=== PATIENT | female | born 1945 | race Caucasian/White ===

== ENCOUNTER 2023-09-27 11:01 | Inpatient (IN) | payer OTHER, SELFPAY ==
[2023-09-27] VITALS (20 sets, daily range): BP systolic 110–167; BP diastolic 52–95; BMI 24.5
[2023-09-27] MEDS: ZOFRAN 4 MG IV (09:45)
--- NOTE | 2023-09-27 09:47 | ED.CVA ---
History of Present Illness
General
Chief Complaint: CVA/TIA Symptoms
Source: spouse and ambulance crew
Exam Limitations: clinical condition
Time Seen by Provider: 09/27/23 09:45
Nursing documentation reviewed up to this point in time: agreed with
Onset of Stroke Symptoms
Onset of symptoms known: Yes
Date of onset of symptoms: 09/24/23
History of Present Illness
History of Present Illness:
77-year-old female with a past medical history of diabetes, CAD status post CABG, hypertension who presents to the emergency department via EMS with aphasia and right flaccid paralysis. Patient cannot provide any history she is completely aphasic.
Per EMS report they received a call that patient was unresponsive found her with flaccid paralysis and nonverbal transported to the emergency room. I called patient's (Cesar) to obtain collateral history: He says that at baseline patient
is awake and alert oriented at performs all ADLs, drives and ambulates without assistance. He reports that over the past 3 days the patient has been having difficulties with her speech�he describes that she has been 'speaking gibberish.' She did
not have any evaluation for the symptoms. Last night she fell asleep on the couch which is not unusual for her and this morning when he found her about an hour prior to arrival here she was unresponsive�he says shortly after he found her she had
some violent shaking of her arms and her head and had some vomiting. EMS called and brought her to the emergency room. He last saw her awake and alert last night at 10:30 PM.
Past History
Past History
ED Past Medical History: HTN, Hypercholesterolemia and NIDDM
ED Past Surgical History: Appendectomy, Cardiac (CABG, STent) and Cholecystectomy
Social History
Tobacco: Former smoker
Alcohol: Occasional
Personal:
Living: with family
Review of Systems
Review of Systems
Unable to obtain full review of systems at this time due to: due to acuity
All Other Systems: Not applicable
Phy Exam
Physical Exam
Physical Exam:
General: Laying in bed eyes open but aphasic and not following commands
Head: Normocephalic, atraumatic
Eyes: Conjunctiva normal, pupils are 3 mm and symmetric, reactive to light bilaterally, no gaze preference noted, response to threat in both eyes
Throat: Airway intact, moist mucous membranes
Neck: Trachea midline, supple without meningismus
Lungs: Clear to auscultation bilaterally, no wheezing, rales, rhonchi
Heart: Regular rate and rhythm, no murmurs, gallops, or rubs
Abd: Soft, non distended
Neuro: Patient is aphasic, not following commands, good tone and spontaneous movement in the left arm and left leg, essentially no tone and appears flaccid right arm and right leg
Skin: no rash
Extremities: Warm well-perfused with good pulses in all extremities
Scores
NIH Stroke Score
Level of Consciousness: 2 - Obtunded
LOC Questions: 2-Neither correct
LOC Commands: 2-Performs neither correctly
Best Horizontal Gaze: 0-Normal
Visual Castillo: 0=Normal, no visual loss
Facial Palsy: 0=Normal, symmetrical
Motor - Right Arm: 4=No movement
Motor - Left Arm: 2=Partial vs. gravity
Motor - Right Le-No movement
Motor - Left Le-Partial vs. gravity
Limb Ataxia: 0-Absent
Sensation: 0-Normal
Best Language: 3-Mute/global aphasia
Dysarthria: 0-Normal
Extinction and Inattention: 0-No abnormality
Total Score:: 21
Thrombolytic Contraindication
Inclusion and Exclusion criteria reviewed: Yes
Reasons for NON-Tx with Thrombolytics ABSOLUTE Exclusions: Greater than 4.5 hrs from onset of sxs
Heart Failure Risk
Heart Failure Risk Score: Not Applicable
Heart Score for Chest Pain Patients
STEMI patient?: Not applicable
Withdrawal Assessment of Alcohol
Withdrawal Assessment Completed?: Not applicable
Course
Orders/Labs/Results
Orders:
Orders
09/27/23 09:44
Ondansetron Injectable [Zofran] 4 mg .ROUTE .STK-MED ONE
09/27/23 09:45
CT Head W/o Cont STROKE ALERT Urgent
Comment:
Reason For Exam: aphasic , flaccid on right
CT Head/Neck Ang STROKE ALERT Urgent
Comment:
Reason For Exam: aphasic , flaccid on right
Bedside Glucose- Treatment ONCE
Cardiac Monitoring- Treatment ONCE
Vital Signs- Treatment ONCE
Frequency: Hourly
Complete Blood Count/With Diff Urgent
Comprehensive Metabolic Panel Urgent
PTT Urgent
Prothrombin Time Urgent
Ondansetron Injectable [Zofran] 4 mg IV NOW STA
Pulse Ox/cont/shift [RESP] Stat
Quantity: 1
09/27/23 09:46
Electrocardiogram (*1) Stat
Reason for Study: Other
Other Reason for Exam: neuro symptoms
EKG- Treatment ONCE
09/27/23 09:57
Aspirin 300 mg RECTAL NOW STA
Levetiracetam Injectable [Keppra] 2,000 mg IV NOW STA
09/27/23 10:01
CR Chest Portable - 1 View Urgent
Comment:
Reason For Exam: vomiting, tachypnea--eval for aspiration
Reason Study Needs to be Portable: Unable to Transport
Abnormal Lab Results
09/27/23
10:14
POC Glucose 174 H mg/dl
(70-99)
Vital Signs
Initial and Last Documented VS:
Initial Vital Signs
Pulse Resp BP
85 26 163/93
09/27/23 09:54 09/27/23 09:54 09/27/23 09:54
Last Documented Vital Signs
Pulse Resp BP
85 26 163/93
09/27/23 09:54 09/27/23 09:54 09/27/23 09:54
MDM/Problems Addressed
Differential Diagnosis Includes:
CVA�hemorrhagic or ischemic, seizure
MDM/Problems Addressed:
77-year-old female presents to the emergency room essentially unresponsive and flaccid paralysis on the right�has had speech issues over the past 3 days per acutely worse this morning when he discovered her. Last was alert at 10:30 PM.
Hypertensive, mild tachypnea otherwise normal vitals. Accu-Chek acceptable. Exam as above. Appears to be protecting her airway for now although she did have some vomiting shortly after arrival. Stroke alert called on arrival patient immediately
taken for CT scan. Neurology at bedside. She has a large subacute stroke left MCA territory. She is outside the window for thrombolytics and unfortunately also outside the window for thrombectomy. Usual labs sent off will check an EKG as well as
a chest x-ray. Will treat with aspirin and Keppra per neurology recommendations. Discussed with hospitalist for admission.
Chronic conditions affecting care:
History of diabetes and hypertension, vascular disease�higher risk for stroke
Acute Exacerbation and/or Progression of Chronic Illness:
Acutely hypertensive�allow for permissive hypertension in setting of ischemic stroke
*Radiology
Radiology exam reviewed: preliminary read by ED provider and radiology read reviewed
*Pulse Oximetry
Patient hypoxic: no
*Critical Care Note
Total Time (30-74mins, 75-104mins- exclusive of procedures): 37
comment:
Critical care statement: A total of 37 minutes of critical care time was provided for this patient. This includes management of unstable vital signs, evaluation of the patient at bedside, frequent reassessment, discussion with
consultants/hospitalist, and review of pertinent medical records. This time was separate from time utilized to perform any aforementioned documented procedures
Data Reviewed
Review of Other/Old Records Reveals: Labs and Records
Source: spouse and ambulance crew
Prescriptions/Medications Considered But Not Given:
Considered tenecteplase but patient is outside the safe window for thrombolytics
Patient Management
Discussion with other providers: Hospitalist (Discussed with hospitalist), Dietary Tech (Discussed with neurologist) and Radiologist (Discussed with radiologist)
Escalation/DeEscalation of care consider admission/obs:
Admission indicated
ED Attending Note
-
Portions of this chart may have been created with voice recognition software.� Occasional wrong word or��sound alike� substitutions may have occurred due to the inherent limitations of voice recognition software.
Discharge Plan
Departure
Patient Disposition: Admit
Date of Disposition: 09/27/23
Time of Disposition: 10:16
Admit to doctor: Jamey
Presentation/result/management discussed w/ accepting MD/DO: Hospitalist
Discharge Problem:
Acute CVA (cerebrovascular accident)
Prescriptions:
No Action
metformin 500 MG tablet
500 mg PO BID@0800,1700
carvedilol [Coreg] 25 MG tablet
25 mg PO BID
sumatriptan succinate [Imitrex] 100 mg Tablet
100 mg PO DAILYPRN PRN (Reason: mirgraines) Qty: 0
simvastatin 20 MG tablet
20 mg PO DAILY
furosemide 20 MG tablet
20 mg PO DAILY
aspirin 81 MG tablet,delayed release (DR/EC)
81 mg PO DAILY
Patient Comments:
No longer takes due to GI bleeds
polyethylene glycol 3350 17 GRAMS powder in packet
17 grams PO DAILYPRN PRN (Reason: constipation)
hydrocodone-acetaminophen 5-325 mg Tablet
1 tab PO Q6HPRN PRN (Reason: migraines)
cyclobenzaprine 10 mg Tablet
10 mg PO DAILYPRN PRN (Reason: spasms)
acetaminophen [Tylenol] 325 mg Tablet
650 mg PO QIDPRN PRN (Reason: mild pain)
tramadol 50 mg Tablet
50 mg PO BID PRN (Reason: moderate pain)
Emgality Pen 120 mg/mL Pen Injector
120 mg SC QMONTH
sucralfate 100 mg/mL Suspension
1 gm PO ACHS Qty: 45 0RF
cyanocobalamin (vitamin B-12) 1,000 mcg Tablet
1,000 mcg PO DAILY Qty: 30 0RF
pantoprazole 40 mg Tablet,Delayed Release (Dr/Ec)
40 mg PO BID Qty: 60 0RF
ferrous sulfate [FeroSul] 325 mg (65 mg iron) Tablet
325 mg PO DAILY Qty: 30 0RF
Referrals:
Cha Cole DO [Family Provider] -
Interventions
Interventions:
*Risk Screen - Suicide Last Done: 09/27/23 09:55
*Neglect/Abuse Screening Last Done: 09/27/23 09:55
--- NOTE | 2023-09-27 09:55 | CON.NEURO4 ---
Addendum entered and electronically signed by Loco Alva MD 09/27/23 14:08:
I saw and evaluate the patient reviewed the note by Justina Hilliard agree to find the following comments:
77-year-old woman with past medical history of GI bleed, coronary artery disease, hypertension, [id number] diabetes mellitus, migraines presenting the hospital with left MCA stroke. She seemed to have some gibberish and speech yesterday
morning according to her but seems like since approximately Saturday 09/23 she has had intermittent speech abnormalities. She has not been taking aspirin due to a GI bleed in July. noted that this morning she was extremely confused
and nearly unresponsive and he did see bilateral arm tonic-clonic movements with loss of consciousness. She had multiple episodes of vomiting was brought to the ER where CTA of the head and neck demonstrated occlusion of left ICA and MCA along with
large left MCA territory ischemic stroke. Patient has no previous history of TIA or stroke. She did have a seizure apparently while in the car around 20 years ago but apparently did not require any chronic antiseizure medications.
CT head noncontrast reviewed, large well-developed area of established acute infarction of the majority of the left MCA territory without hemorrhage. No midline shift.
CTA of the head and neck demonstrates left ICA occlusion as well as a separate left MCA M1 occlusion.
Neurologic examination: NIH by 21 on my count
Drowsy but eyes are open spontaneously, mild left gaze preference is seen, global aphasia with no spontaneous speech and no comprehension of commands
Left gaze preference is seen, not able to tell if there is a hemianopia present, pupils are 3 mm and equal round reactive light bilaterally, severe dysarthria, right facial weakness
Motor examination shows flaccid weakness on the right arm with no movements, 2/5 withdrawal of the right leg, left leg has effort against gravity in left arm shows no drift.
Upgoing toe on the right foot
Assessment: Malignant left MCA ischemic infarction most likely occurring in the past 2 to 3 days. Etiology most likely atheroembolic with cardioembolic being less likely but still possible.
With clearly developed infarction of the entire left MCA territory patient does not a candidate for mechanical thrombectomy as there would be little benefit and only risks to the procedure. Patient not a candidate for thrombolytics given far
outside the time window.
New seizure due to the new ischemic stroke, not all patients who have early seizure due to an acute ischemic stroke need to be maintained on long-term antiseizure medications but for the time being would be best to have on antiseizure medication.
Discussed the unfortunate news with her that this represents a life-changing and severe stroke.
Recommendations
-Neurosurgical consultation given the risk of cerebral edema which generally will peak between 3 to 5 days after onset of stroke
-Neurologic checks and NIH stroke scales
-Goal normal sodium and goal normoglycemia
-Rectal aspirin daily
-Check lipid panel and hemoglobin A1c
-ICU monitoring is appropriate, most likely for the next 2 to 4 days which represent the highest risk for cerebral edema and herniation
-Speech physical and Occupational Therapy evaluations
-Levetiracetam 500 mg every 12 hours IV
-Plan for repeating CT head 09/28, earlier if there is neurologic worsening or signs of hemorrhagic conversion
ICU time = 60 minutes
Original Note:
Documented by User: Justina Angulo NP 09/27/23 12:53
Consultation - Neurology 4
-
CONSULTING PHYSICIAN: Jana Alva MD
REFERRING PHYSICIAN: ER/Dr. Hazel
DICTATED BY: JIMMY Styles
DATE/TIME OF REQUEST: 09/27/23
DATE/TIME OF CONSULTATION: 09/27/23
Reason for Consultation: Stroke Alert
History of Present Illness:
This is a 77-year-old female who has presented to the hospital with report of right-sided hemiparesis, aphasia, vomiting, and upper body shaking. Patient nonverbal and this information is obtained from her spouse. Patient's reports that
yesterday morning (09/26/23) she started to have some nonsensical speech which he describes as 'speaking gibberish.' Otherwise she was in her usual state. She fell asleep on the couch last night and her went to wake her up at 0830 this morning
(09/27/23) and she was unresponsive. Moments later her arms started shaking and she vomited. EMS arrived and noted right hemiparesis and global aphasia and activated a stroke alert. CT head was obtained on arrival to the ER and demonstrates a left M1
thrombus and large left MCA territory ischemic infarct in addition to an old right lentiform nucleus/external capsule ischemic stroke. CTA head/neck demonstrates complete occlusion of the L ICA and L MCA M1 in addition to R ICA 70% stenosis. She is
not a candidate for TNK/IAT due to being outside of the time window, Aspect score 1. She was taking an aspirin 81mg daily until July 2023 when she had an upper GI bleed, it was discontinued at that time. She has a history of one seizure 20 years
ago, she was not maintained on any antiseizure medications for that event. He reports that she has had some memory issues over the past several months. She had a CT head in 12/[address] Bernabe for memory issues, results were
unremarkable. He denies any known history of TIA or stroke in the past.
Past Medical History: Upper GI bleed 07/2023, CAD, HTN, HLD, NIDDM, migraines, one seizure 20 years ago, peptic ulcer disease, esophageal ulcer, chronic anemia, vitamin B12 deficiency
Surgical History: GI Clip 07/2023, CABG
Family History: Reviewed and noncontributory.
Social History: Former smoker. Occasional alcohol. No illicit drug use.
Allergies: Cephalexin, penicillins, iodine, ibuprofen.
Home Medications: See below.
Review of Symptoms:
Per the HPI. I am unable to obtain a complete review of systems�because of patient's inability to provide history.
Physical Exam:
The patient is afebrile, abdomen is nondistended, breathing is unlabored, skin is warm and dry, no edema. Patient actively vomiting.
NIH Stroke Scale:
I performed the NIH stroke scale on the patient on 09/27/23 at 1000. The patient scored 25 points on the NIH stroke scale assessment, which were assigned as follows: See below.
Neurologic Examination:
The patient is obtunded, resists eye opening. Opens eyes intermittently with vomiting/pain. She is globally aphasic, no verbal response and does not follow any commands. On cranial nerve assessment, pupils are 3 mm bilateral, round and reactive to
light and accommodation. TERRY visual castillo or EOMs, gaze is midline. There is right facial drooping at rest. TERRY tongue and uvula. Moves the left arm and leg spontaneously antigravity, localizes left arm to pain and withdraws left leg to pain. RUE
0/5 to pain, RLE withdraws to pain. TERRY drift. No involuntary movement noted. Babinski is positive on the right. TERRY sensation, double simultaneous, and coordination.
Lab Results: See below.
Neuro Imaging:
1. CT Head 09/27/23: There is thrombus in the M1 segment of the left middle cerebral artery with 14 cm subacute nonhemorrhagic left middle cerebral artery infarct as detailed above. There is old 3 cm infarct involving the right lentiform nucleus and
external capsule. There is moderate diffuse cortical atrophy with moderate nonspecific white matter changes as described above. Aspect score 1.
2. CTA Head/Neck 09/27/23: There is large volume partially calcific atherosclerotic plaque at the left carotid bifurcation associated with complete occlusion of the left internal carotid artery approximately 1.5 cm distal to its origin
No flow is demonstrated in the left internal carotid artery distal to this occlusion. There is cross filling of the left anterior cerebral artery and proximal M1 segment of the left middle cerebral artery via patent anterior communicating artery.
The distal M1 segment of the left middle cerebral artery is completely occluded. There is large volume partially calcific atherosclerotic plaque at the right carotid bifurcation associated with approximately 70% stenosis of the right internal
carotid artery at its origin .
Differentials for the patient's presentation include:
1. Large left MCA territory subacute ischemic infarct in the setting of L ICA and distal LMCA M1 complete occlusion.
2. R ICA 70% stenosis.
Patient has the following risk factors for their symptoms: HTN, NIDDM, HLD, age
IV Tenecteplase/IAT candidacy: Not a candidate due to outside of time window, Aspect score 1.
Recommendations:
-Provide aspirin 325mg rectal x1 now and continue daily until GI access is obtained.
-Goal normotension as stroke symptoms occurred >24 hours ago.
-Neurosurgery consult placed to evaluate for intracranial edema.
-LDL goal <70. Lipid panel pending. Initiate atorvastatin 80mg daily when GI access is established.
-Goal normoglycemia, hbA1c is 6.1.
-NIHSS and neurological checks per unit guidelines.
-Provide patient's family with stroke education packet.
-PT/OT/ST evaluations.
-DVT prophylaxis.
-Will follow.
Discussed patient care with: Dr. Alva, the patient, patient's spouse
NIH Stroke Score
Subsequent NIH Scale
Date of Subsequent NIH Scale: 09/27/23
Time of Subsequent NIH Scale: 10:00
NIH Stroke Score
Level of Consciousness: 2 - Obtunded
LOC Questions: 2-Neither correct
LOC Commands: 2-Performs neither correctly
Best Horizontal Gaze: 0-Normal
Visual Castillo: 0=Normal, no visual loss
Facial Palsy: 2=Partial paralysis
Motor - Right Arm: 4=No movement
Motor - Left Arm: 2=Partial vs. gravity
Motor - Right Le-No movement
Motor - Left Le-Partial vs. gravity
Limb Ataxia: UN-Amputation/jointfusion
Sensation: 0-Normal
Best Language: 3-Mute/global aphasia
Dysarthria: UN-Intubated, other
Extinction and Inattention: 2-Total rayo inattention
Total Score:: 25
Vital Signs and Labs
-
Vital Signs and Labs:
Vital Signs
Temp Pulse Resp BP Pulse Ox
96.9 F L 90 21 167/95 98
09/27/23 12:00 09/27/23 12:15 09/27/23 12:15 09/27/23 12:15 09/27/23 12:15
Lab Results
09/27/23 10:18
09/27/23 10:18
PT 14.1 Sec (11.4-14.6) 09/27/23 10:18
INR 1.10 09/27/23 10:18
APTT 27.8 Sec (23.4-35.0) 09/27/23 10:18
Sodium 134 mmol/L (135-145) L 09/27/23 10:18
Potassium 3.9 mmol/L (3.5-5.1) 09/27/23 10:18
BUN 19 mg/dl (7-17) H 09/27/23 10:18
Glucose 184 mg/dl (70-99) H 09/27/23 10:18
Calcium 8.8 mg/dl (8.4-10.2) 09/27/23 10:18
Phosphorus 4.7 mg/dl (2.5-4.5) H 09/27/23 10:18
Medications
-
Active Medications
Generic Name Dose Route Start Last Admin
Trade Name Freq PRN Reason Stop Dose Admin
Aspirin 300 mg 09/28/23 08:00
Aspirin 300 Mg Rectal Suppository RECTAL 10/26/23 07:59
DAILY MANUEL
Dextrose 12.5 grams 09/27/23 11:55
Dextrose 50% (0.5 Grams/Ml) 50 Ml Syringe IV 10/25/23 11:54
[id number] PRN
hypoglycemia
Protocol
Enoxaparin Sodium 40 mg 09/27/23 18:00
Enoxaparin Sodium 40 Mg/0.4 Ml Syringe SC 10/25/23 17:59
QPM MANUEL
Glucagon 1 mg 09/27/23 11:55
Glucagon 1 Mg Vial IM 10/25/23 11:54
PRN PRN
hypoglycemia
Protocol
Insulin Aspart 0 units 09/27/23 18:00
Insulin Aspart Low Resistance 300 Units/3 Ml Pen.Injctr SC 10/25/23 17:59
Q6 MANUEL
Protocol
Levetiracetam 500 mg 09/27/23 20:00
Levetiracetam (100 Mg/Ml) 500 Mg/5 Ml Vial IV 10/25/23 19:59
Q12 MANUEL
Sodium Chloride 0 flush 09/27/23 12:00
Sodium Chloride 0.9% (Flush) Syringe IV 10/25/23 11:59
PER PROTOCOL MANUEL
Home Medications
Medication Instructions Recorded
carvedilol 25 mg tablet (Coreg) 25 mg PO BID Heart 09/12/19
Disease/Condition
furosemide 20 mg tablet 20 mg PO DAILY Fluid 09/12/19
Retention/Swelling
metformin 500 mg tablet 500 mg PO BID@0800,1700 Diabetes 09/12/19
simvastatin 20 mg tablet 20 mg PO DAILY High Cholesterol 09/12/19
sumatriptan succinate 100 mg 100 mg PO DAILYPRN PRN mirgraines 09/12/19
tablet (Imitrex) ##0
aspirin 81 mg tablet,delayed 81 mg PO DAILY Blood Clot 09/13/19
release Prevention/Tx
acetaminophen 325 mg tablet 650 mg PO QIDPRN PRN mild pain 07/27/23
(Tylenol)
cyclobenzaprine 10 mg tablet 10 mg PO DAILYPRN PRN spasms 07/27/23
galcanezumab-gnlm 120 mg/mL 120 mg SC QMONTH migraine 07/27/23
subcutaneous pen injector
(Emgality Pen)
hydrocodone 5 mg-acetaminophen 325 1 tab PO Q6HPRN PRN PAIN 07/27/23
mg tablet
polyethylene glycol 3350 17 gram 17 grams PO DAILYPRN PRN 07/27/23
oral powder packet constipation
tramadol 50 mg tablet 50 mg PO BID PRN moderate pain 07/27/23
ferrous sulfate 325 mg (65 mg 325 mg PO DAILY Supplement #30 tabs 08/13/23
iron) tablet (FeroSul)
pantoprazole 40 mg tablet,delayed 40 mg PO BID Gastrointestinal 08/13/23
release issue #60 tabs
sucralfate 100 mg/mL oral 1 gm PO ACHS Gastrointestinal 08/13/23
suspension issue #45 mL

Documented by User: Loco Alva MD 09/27/23 13:59
NIH Stroke Score
NIH Stroke Score
Total Score:: 25
[2023-09-27] MEDS: ASPIRIN 300 MG RECTAL (10:04)
[2023-09-27 10:14] LABS: Glucose - Point of Care 174 mg/dl (70-99)
[2023-09-27] MEDS: KEPPRA 2000 MG IV (10:16)
[2023-09-27 10:32] LABS: % Basophils 0.1 % (0-2); % Eosinophils 0.5 % (0-6); % Immature Granulocytes 0.4 % (0-0.5); % Monocytes 4.8 % (1.7-9.3); % Neutrophils 81.2 % (42.2-75.2); Absolute Monocytes 0.4 10^3/uL (0.1-0.6); Absolute Neutrophils 6.4 10^3/uL (1.4-6.5); Hematocrit 33.7 % (37.0-47.0); Hemoglobin 10.9 g/dL (12.0-16.0); Mean Corp Hgb Conc. 32.3 g/dL (33.0-37.0); Mean Corpuscular Volume 83.6 fL (81.0-99.0); Mean Platelet Volume 10.3 fL (7.4-10.4); Nucleated Red Blood Cells % 0 %; Platelet Count 251 10^3/uL (130-400); Red Blood Cell Count 4.03 10^6/uL (4.20-5.40); Red Cell Dist. Width 14.4 % (11.5-14.5); White Blood Cell Count 7.9 10^3/uL (4.8-10.8)
[2023-09-27 10:43] LABS: PT 14.1 Sec (11.4-14.6)
[2023-09-27 10:45] LABS: APTT 27.8 Sec (23.4-35.0)
[2023-09-27 10:55] LABS: ALT (SGPT) 12 U/L (0-35); AST (SGOT) 22 U/L (14-36); Albumin 3.8 g/dl (3.5-5.0); Alkaline Phosphatase 72 U/L (38-126); Blood Urea Nitrogen 19 mg/dl (7-17); Calcium 8.8 mg/dl (8.4-10.2); Carbon Dioxide 26 mmol/L (22-30); Chloride 97 mmol/L (98-107); Glucose 184 mg/dl (70-99); Potassium 3.9 mmol/L (3.5-5.1); Sodium 134 mmol/L (135-145); Total Bilirubin 0.5 mg/dl (0.2-1.3); Total Protein 6.1 g/dl (6.3-8.2); eGFR > 60.00
--- NOTE | 2023-09-27 10:56 | HPS.HSE ---
Family Physician
-
Family Physician: Cha Cole
Chief Complaint
-
Speech difficulty, right-sided weakness
History of Present Illness
77-year-old female brought in by EMS for acute right-sided weakness and aphasia. All information gathered by speaking with and gathering records. Patient cannot provide any history due to aphasia.
reports that over the past 72 hours she has had difficulty with speech, speaking gibberish, did not seek medical attention. Last night she fell asleep on the couch which was unusual for her and the found her early this morning
unresponsive. Shortly after the found her she had some violent shaking of her arms and her head and vomited.
EMS was subsequently called.
denies history of stroke. At baseline she apparently drives and is independent.
Medical History
Past Medical History
Past Medical History: Reports Other
Additional Past Medical History:
CAD
Essential hypertension
DM2
Migraine headaches
Peptic ulcer disease
Esophageal ulcer
Chronic anemia
Past Surgical History: Reports Appendectomy, Cholecystectomy and Other
Additional Past Surgical History:
CABG
Social History
Tobacco: Former Smoker
Alcohol: Occasional
Drug: None
Personal:
Living: With Family
Family History
Family History: Not pertinent
Allergies / Home Medications
Allergies reflects when Allergies were last updated in [facility].
Home Medications with original date entered in [facility]
Allergy/Medication List:
Allergies
Allergy/AdvReac Type Severity Reaction Status Date / Time
cephalexin [From Keflex] Allergy Intermediate Rash Verified 09/27/23 10:27
ibuprofen Allergy Mild Hives Verified 09/27/23 10:27
Penicillins Allergy Mild Hives Verified 09/27/23 10:27
iodine Allergy Unknown Unknown Verified 09/27/23 10:27
Home Medications
carvedilol 25 mg tablet (Coreg) 25 mg PO BID Heart Disease/Condition 09/12/19
furosemide 20 mg tablet 20 mg PO DAILY Fluid Retention/Swelling 09/12/19
metformin 500 mg tablet 500 mg PO BID@0800,1700 Diabetes 09/12/19
simvastatin 20 mg tablet 20 mg PO DAILY High Cholesterol 09/12/19
sumatriptan succinate 100 mg tablet (Imitrex) 100 mg PO DAILYPRN PRN mirgraines ##0 09/12/19
aspirin 81 mg tablet,delayed release 81 mg PO DAILY Blood Clot Prevention/Tx 09/13/19
acetaminophen 325 mg tablet (Tylenol) 650 mg PO QIDPRN PRN mild pain 07/27/23
cyclobenzaprine 10 mg tablet 10 mg PO DAILYPRN PRN spasms 07/27/23
galcanezumab-gnlm 120 mg/mL subcutaneous pen injector (Emgality Pen) 120 mg SC QMONTH migraine 07/27/23
hydrocodone 5 mg-acetaminophen 325 mg tablet 1 tab PO Q6HPRN PRN migraines 07/27/23
polyethylene glycol 3350 17 gram oral powder packet 17 grams PO DAILYPRN PRN constipation 07/27/23
tramadol 50 mg tablet 50 mg PO BID PRN moderate pain 07/27/23
cyanocobalamin (vitamin B-12) 1,000 mcg tablet 1,000 mcg PO DAILY Gastrointestinal issue #30 tabs 08/13/23
ferrous sulfate 325 mg (65 mg iron) tablet (FeroSul) 325 mg PO DAILY Supplement #30 tabs 08/13/23
pantoprazole 40 mg tablet,delayed release 40 mg PO BID Gastrointestinal issue #60 tabs 08/13/23
sucralfate 100 mg/mL oral suspension 1 gm PO ACHS Gastrointestinal issue #45 mL 08/13/23
Review of Systems
-
Unable to obtain full review of systems at this time due to: Patient Non-verbal
Physical Exam
Vital Signs
Vital Signs
Temp Pulse Resp BP
97.6 F 84 16 163/93
09/27/23 10:16 09/27/23 10:16 09/27/23 10:16 09/27/23 09:54
Physical Exam
General: Well Developed, Well Nourished, No Apparent Distress and Other (Sedated, snoring)
HEENT: NormoCephalic and Anicteric
Respiratory: Clear
Cardiac: S1/S2 and Regular Rhythm
Breast: Deferred by me
GI: Soft, Non Tender and Non Distended
Genito-urinary: Deferred by me
Musculoskeletal: No Clubbing, No Cyanosis and No Edema
Skin: Warm and Dry
Neuro: Sedated
Hematologic/Lymphatic: No Lymphadenopathy
Psych: Calm
Laboratory Results
-
09/27/23 10:18
09/27/23 10:18
Laboratory Results
PT 14.1 Sec (11.4-14.6) 09/27/23 10:18
INR 1.10 09/27/23 10:18
APTT 27.8 Sec (23.4-35.0) 09/27/23 10:18
Total Bilirubin 0.5 mg/dl (0.2-1.3) 09/27/23 10:18
AST 22 U/L (14-36) 09/27/23 10:18
ALT 12 U/L (0-35) 09/27/23 10:18
Alkaline Phosphatase 72 U/L (38-126) 09/27/23 10:18
Impression/Plan
-
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 An old 3 cm infarct involving the right lentiform nucleus and external
capsule noted. Moderate diffuse cortical atrophy with moderate nonspecific white matter changes.
CTA head and neck shows a large volume partially calcific atherosclerotic plaque at the left carotid bifurcation associated with complete occlusion of the left ICA approximately 1.5 cm distal to its origin. No flow is demonstrated in the left ICA
distal to this occlusion. Cross filling of the left anterior cerebral artery and proximal M1 segment of the left MCA via patent anterior communicating artery. Distal M1 segment of the left middle cerebral artery is completely occluded. 70%
stenosis of the right ICA at its origin noted.
Unfortunately patient is out of the window for thrombolysis or thrombectomy. Discussed with Dr. Alva, neurology.
Admit to ICU for close monitoring. Neurosurgery consulted for increased intracranial pressure. Consult production tool engineer.
Daily rectal aspirin ordered.
New onset seizure -most likely due to above stroke. Continue IV Keppra per neurology.
Acute TME -due to large subacute stroke as above. Place Dobbhoff tube for feeds given encephalopathy. NPO.
Hyponatremia -sodium 134. Glucose 184. Monitor closely.
CAD/CABG -stable.
Essential hypertension- goal systolic blood pressure less than 180 per discussion with neurology.
DM2 with hyperglycemia -glucose 184 this morning. At home she was on metformin 500 mg twice daily.
Chronic anemia -normocytic. Hemoglobin 10.9 today. Previous hemoglobin was 7.5 in July.
History of GI bleed/peptic ulcer disease
Vitamin B12 deficiency
History of migraines
Full code
updated at the bedside.
[2023-09-27 11:54] LABS: Magnesium 1.4 mg/dl (1.6-2.3); Phosphorus 4.7 mg/dl (2.5-4.5)
--- NOTE | 2023-09-27 12:29 | PTCARENOTE ---
Addendum entered by Brisa Masterson RN 09/27/23 13:20:
family at bedside, updated. neurologist messaged regarding NIH
Original Note:
patient received from ED, moaning, opens eyes to name. moves left arm with purpose. right arm/leg flaccid. right eye with downward gaze. monitor nsr, lungs with coarse breath sounds bilaterally. frequent moist cough. abdomen soft, active bowel
sounds. incontinent of urine, pure wick applied. right nare dobhoff inserted per orders. placment verified by air auscultation, green fluid aspirated. abdominal xray taken, results pending
--- NOTE | 2023-09-27 12:43 | CON.INTV ---
Consultation
Consultation Request
Date/Time Consultation Requested: 09/27/23
Date/Time Consultation Performed: 09/27/23
Medical History
-
History of Present Illness:
Patient is a 77-year-old female with history of HTN, CAD, DM 2 brought in by EMS for acute right-sided weakness and aphasia.� reports that over the past 72 hours she has had difficulty with speech, speaking gibberish, did not seek medical
attention at onset of symptoms.�Patient was then found this morning unresponsive.� She then noted to have acute onset of shaking of her arms and head with vomiting. EMS was called.
On arrival, CT showing acute MCA CVA, NIH score 25 per Neuro. She is not within the window for intervention. She is admitted to ICU for further management.
Past Medical History
Past Medical History: Other (see list below)
Social History
Tobacco: Non-smoker
Alcohol: None
Drug: None
Family History
Family History: Reviewed & Not Pertinent
Allergies / Home Medications
Allergies
Allergy/AdvReac Type Severity Reaction Status Date / Time
cephalexin [From Keflex] Allergy Intermediate Rash Verified 09/27/23 10:27
ibuprofen Allergy Mild Hives Verified 09/27/23 10:27
Penicillins Allergy Mild Hives Verified 09/27/23 10:27
iodine Allergy Unknown Unknown Verified 09/27/23 10:27
Home Medications
Medication Instructions Recorded Confirmed Last Taken Type
carvedilol 25 mg tablet (Coreg) 25 mg PO BID Heart 09/12/19 08/10/23 08/09/23 20:00 History
Disease/Condition
furosemide 20 mg tablet 20 mg PO DAILY Fluid 09/12/19 08/10/23 08/09/23 08:00 History
Retention/Swelling
metformin 500 mg tablet 500 mg PO BID@0800,1700 Diabetes 09/12/19 08/10/23 08/09/23 08:00 History
simvastatin 20 mg tablet 20 mg PO DAILY High Cholesterol 09/12/19 08/10/23 08/09/23 08:00 History
sumatriptan succinate 100 mg 100 mg PO DAILYPRN PRN mirgraines 09/12/19 08/10/23 7 Days Ago History
tablet (Imitrex) ##0 ~07/20/23
aspirin 81 mg tablet,delayed 81 mg PO DAILY Blood Clot 09/13/19 08/10/23 07/27/23 08:00 History
release Prevention/Tx
acetaminophen 325 mg tablet 650 mg PO QIDPRN PRN mild pain 07/27/23 08/10/23 08/08/23 08:00 History
(Tylenol)
cyclobenzaprine 10 mg tablet 10 mg PO DAILYPRN PRN spasms 07/27/23 08/10/23 08/07/23 20:00 History
galcanezumab-gnlm 120 mg/mL 120 mg SC QMONTH migraine 07/27/23 08/10/23 07/10/23 History
subcutaneous pen injector
(Emgality Pen)
hydrocodone 5 mg-acetaminophen 325 1 tab PO Q6HPRN PRN PAIN 07/27/23 08/10/23 08/09/23 18:00 History
mg tablet
polyethylene glycol 3350 17 gram 17 grams PO DAILYPRN PRN 07/27/23 08/10/23 07/24/23 08:00 History
oral powder packet constipation
tramadol 50 mg tablet 50 mg PO BID PRN moderate pain 07/27/23 08/10/23 Unknown History
ferrous sulfate 325 mg (65 mg 325 mg PO DAILY Supplement #30 tabs 08/13/23 Unknown Rx
iron) tablet (FeroSul)
pantoprazole 40 mg tablet,delayed 40 mg PO BID Gastrointestinal 08/13/23 Unknown Rx
release issue #60 tabs
sucralfate 100 mg/mL oral 1 gm PO ACHS Gastrointestinal 08/13/23 Unknown Rx
suspension issue #45 mL
Review of Systems
-
Unable to Obtain full review of systems at this time due to: Acuity and Patient Non Verbal
History Source: Family, Transfer Record and Physician
Vitals / Labs / Diagnostic Testing
Vital Signs
Temp Pulse Resp BP Pulse Ox
96.9 F L 90 21 167/95 98
09/27/23 12:00 09/27/23 12:15 09/27/23 12:15 09/27/23 12:15 09/27/23 12:15
Lab Data
09/27/23 10:18
09/27/23 10:18
Laboratory Results
09/27/23
10:18
PT 14.1
INR 1.10
APTT 27.8
Diagnostic Testing:
Physical Exam
-
HEENT: Normocephalic, Anicteric and Other (edentulous)
Cardiovascular: S1/S2, Regular Rhythm and Peripheral Edema
Respiratory: Clear and Non-Labored Respirations
GI: Soft, Non Distended, Non Tender and Other (DHT in place)
Neurology: Other (flaccid paralysis of R, not following commands, aphasic, unresponsive)
Skin: Warm and Dry
General: Comfortable and Other (NAD)
Assessment
-
Patient is a 77-year-old female with history of HTN, CAD, DM 2 brought in by EMS for acute right-sided weakness and aphasia.� reports that over the past 72 hours she has had difficulty with speech, speaking gibberish, did not seek medical
attention at onset of symptoms.�Patient was then found this morning unresponsive.� She then noted to have acute onset of shaking of her arms and head with vomiting. On arrival, CT showing acute MCA CVA, NIH score 25 per Neuro. She is not within
the window for intervention. She is admitted to ICU for further management.
Acute MCA CVA
Unresponsive
Possible witnessed tonic clonic seizures
Expressive aphasia
R sided paralysis
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
UTI� �
Diabetes� �
Hyperlipidemia� �
Hypertension� �
Migraine� �
Cholecystectomy� �
Appendectomy� �
CAD s/p CABG� �
Ankle surgery� �
GI bleeding/ulcers� � 07/2023� �
Anterior Wedge compression Fx T12
B12 and Iron Def Anemia
Former smoker
Plan
Acute CVA unfortunately out of the window for intervention
Large L MCA CVA, thrombus confirmed in M1 with 14 cm subacute subacute nonhemorrhagic infarct
Old 3 cm infarct involving the right lentiform nucleus and external capsule noted
Observe overnight following administration, careful watch for signs of bleeding
Follow CBC, neurovascular checks
Repeat MRI in AM
Neuro following
Seizure management as well
Prior cardiac history includes--HTN
No prior ECHO for review
Monitor on telemetry
No prior h/o lung disease, former smoker
Aspiration precautions
CXR reviewed wtih no acute process
NPO s/p DHT placement
TF diet per protocol
Speech eval
GI ppx --resume home PPI
Creat at baseline, follow UO
Void trials
I/Os
[place] if needed
No signs/symptoms suspicious for infectious etiology at this time.
Will observe off antibiotics for now.
DVT ppx held, SCDs
Prognosis overall appears poor, discussed with family at bedside
has decided on DNR--will change in record
If she should clinically deteriorate, they were ok with comfort measures
We will follow
Diagnostic Data
Chest X-Ray:09/27/23- There is suboptimal inspiration with linear interstitial airspace disease at both lung bases most consistent with subsegmental atelectasis
CT Scan: CTA 09/27/23- 1). There is large volume partially calcific atherosclerotic plaque at the left carotid bifurcation associated with complete occlusion of the left internal carotid artery approximately 1.5 cm distal to its origin
No flow is demonstrated in the left internal carotid artery distal to this occlusion
There is cross filling of the left anterior cerebral artery and proximal M1 segment of the left middle cerebral artery via patent anterior communicating artery.
The distal M1 segment of the left middle cerebral artery is completely occluded.
2).There is large volume partially calcific atherosclerotic plaque at the right carotid bifurcation associated with approximately 70% stenosis of the right internal carotid artery at its origin .
HEAD- 1). There is thrombus in the M1 segment of the left middle cerebral artery with 14 cm subacute nonhemorrhagic left middle cerebral artery infarct as detailed above
2). There is old 3 cm infarct involving the right lentiform nucleus and external capsule
3). There is moderate diffuse cortical atrophy with moderate nonspecific white matter changes as described above.
Echo:
PFT's:
Reports and relevant images were personally reviewed.
-----
Critical Care time 50 mins -- The patient is admitted for acute critical illness for the treatment of vital organ failure and/or prevention of further life-threatening conditions. Total care includes time spent in review of history, physical exam,
medications, hemodynamic/ventilator parameters, laboratory data, imaging and discussion with house staff, pharmacy, respiratory therapy, shipyard painter helper, and nursing.
--- NOTE | 2023-09-27 13:40 | PTCARENOTE ---
Dr Marcie muniz updated. patient family requests sacrament of the sick. pastoral care notified, emotional support to family. reviewed plan of care
--- NOTE | 2023-09-27 15:45 | CHAP ---
Emotional and spiritual support provided for family at bedside. Fr. Cavazos of [facility] provided Sacrament of the Sick/Last Rites as requested by family.
[2023-09-27] MEDS: DESENEX/MITRAZOL/ZEASORB 1 APPLIC TOPICAL ×2 (15:54→20:20)
--- NOTE | 2023-09-27 16:22 | PTCARENOTE ---
reassessed. tube feeds initiated after read of abdominal xray. patient will open eyes to name, resistant to care, moving left arm with purpose. withdraws to pain on right arm and leg. voiding large amounts utilizing pure wick
[2023-09-27] MEDS: MAGNESIUM OXIDE 500 MG TUBE (16:28)
[2023-09-27] MEDS: LOVENOX 40 MG SC (16:29)
[2023-09-27] MEDS: NOVOLOG FLEXPEN-LOW RESISTANCE SC ×2 (17:49→23:55)
[2023-09-27 17:56] LABS: Glucose - Point of Care 116 mg/dl (70-99)
--- NOTE | 2023-09-27 18:13 | PTCARENOTE ---
patient remains lethargic,localizes tactile stimulation with left arm only, attempts to pull gown to cover self. intermittently opening eyes, making occasional vocalizations
[2023-09-27] MEDS: KEPPRA 500 MG IV (20:20)
[2023-09-27] MEDS: NSS (PRESERVATIVE FREE) 10 ML IV (20:20)
[2023-09-27] MEDS: PROTONIX IV 40 MG IV (20:20)
--- NOTE | 2023-09-27 20:28 | PTCARENOTE ---
Assumed care of pt at 1900. Pt drowsy, arouses to continued tactile stimuli or repeatedly yelling her name, will briefly open her eyes. NIH done in tandem with offgoing RN, NIH score=26 at start of shift. Pt demonstrates ability to purposefully move
her left side, will adjust her gown and blankets and move her leg around, but has not done anything with the right side except withdrawal to painful stimuli in her right foot. Nonverbal, will not follow commands, will not acknowledge right side or
look towards right side but will look towards the left when someone is speaking to her. See stroke/neuro flowsheet for additional details. SR 80s on monitor with occasional PVCs noted. SpO2 96-98% on RA. Physical assessment completed, see nursing
shift assessment flowsheet for full details. Pt resting with eyes closed, not exhibiting any signs of pain or distress, CPOT=0.
[2023-09-28] VITALS (17 sets, daily range): BP systolic 135–172; BP diastolic 66–85; BMI 24.0
[2023-09-28 00:06] LABS: Glucose - Point of Care 144 mg/dl (70-99)
--- NOTE | 2023-09-28 00:12 | PTCARENOTE ---
Physical assessment unchanged. Pt will respond to tactile stimuli and neurological assessment is unchanged, unable to assess left eye for pupil size or reaction to light because pt keeps squeezing that eye shut when attempting to assess (would have
to forcefully pry the eye open to look). Right eye remains unchanged. SR 80s on monitor. SpO2 97% on RA. Tube feeding rate increased per order, pt has been tolerating.
--- NOTE | 2023-09-28 04:45 | PTCARENOTE ---
0400 physical and neurological assessments unchanged. Pt will sometimes open eyes to voice. When pt does open left eye, the pupil is equal in size to the right. Pt noted to be yawning frequently. SR 80s on monitor, SpO2 97% on RA.
[2023-09-28 05:10] LABS: Hematocrit 35.7 % (37.0-47.0); Hemoglobin 12.3 g/dL (12.0-16.0); Mean Corp Hgb Conc. 34.5 g/dL (33.0-37.0); Mean Corpuscular Hgb 27.3 pg (27.0-31.0); Mean Corpuscular Volume 79.2 fL (81.0-99.0); Mean Platelet Volume 10.5 fL (7.4-10.4); Platelet Count 277 10^3/uL (130-400); Red Blood Cell Count 4.51 10^6/uL (4.20-5.40); Red Cell Dist. Width 14.5 % (11.5-14.5); White Blood Cell Count 14.5 10^3/uL (4.8-10.8)
[2023-09-28 05:12] LABS: ALT (SGPT) 13 U/L (0-35); AST (SGOT) 29 U/L (14-36); Albumin 4.2 g/dl (3.5-5.0); Alkaline Phosphatase 81 U/L (38-126); Blood Urea Nitrogen 10 mg/dl (7-17); Calcium 9.2 mg/dl (8.4-10.2); Carbon Dioxide 29 mmol/L (22-30); Chloride 97 mmol/L (98-107); Estimated Creatinine Clearance 53 ml/min; Glucose 170 mg/dl (70-99); HDL Cholesterol 55 mg/dl; LDL Cholesterol, Calculated 58 mg/dl; Magnesium 1.6 mg/dl (1.6-2.3); Phosphorus 3.4 mg/dl (2.5-4.5); Potassium 3.5 mmol/L (3.5-5.1); Sodium 132 mmol/L (135-145); Total Bilirubin 0.7 mg/dl (0.2-1.3); Total Cholesterol 144 mg/dl (50-199); Total Protein 6.7 g/dl (6.3-8.2); Triglyceride 157 mg/dl (10-149); Very Low Density Lipoprotein 31 mg/dl (0-30); eGFR > 60.00
[2023-09-28] MEDS: NOVOLOG FLEXPEN-LOW RESISTANCE 1 UNITS SC ×4 (06:08→23:58)
[2023-09-28] MEDS: KCL ELIXIR 20 MEQ TUBE (06:08)
[2023-09-28] MEDS: MAGNESIUM OXIDE 500 MG TUBE (06:08)
[2023-09-28 06:18] LABS: Glucose - Point of Care 162 mg/dl (70-99)
--- NOTE | 2023-09-28 07:15 | W.PN.INTV ---
Today's Communication / Plan
Recommendations
no significant progress in neurologic exam
dht in place for tube feeding
family aware of prognosis, may need further conversations if outcome is poor
speech eval
transfer to floors per team if no further intervention is recommended
Assessment
-
Patient is a 77-year-old female with history of HTN, CAD, DM 2 brought in by EMS for acute right-sided weakness and aphasia.� reports that over the past 72 hours she has had difficulty with speech, speaking gibberish, did not seek medical
attention at onset of symptoms.�Patient was then found this morning unresponsive.� She then noted to have acute onset of shaking of her arms and head with vomiting. On arrival, CT showing acute MCA CVA, NIH score 25 per Neuro. She is not within
the window for intervention. She is admitted to ICU for further management.
Acute MCA CVA
Unresponsive
Possible witnessed tonic clonic seizures
Expressive aphasia
R sided paralysis
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
UTI� �
Diabetes� �
Hyperlipidemia� �
Hypertension� �
Migraine� �
Cholecystectomy� �
Appendectomy� �
CAD s/p CABG� �
Ankle surgery� �
GI bleeding/ulcers� � 07/2023� �
Anterior Wedge compression Fx T12
B12 and Iron Def Anemia
Former smoker
Plan
Acute CVA unfortunately out of the window for intervention
Large L MCA CVA, thrombus confirmed in M1 with 14 cm subacute subacute nonhemorrhagic infarct
Old 3 cm infarct involving the right lentiform nucleus and external capsule noted
Observe overnight following administration, careful watch for signs of bleeding
Follow CBC, neurovascular checks
Repeat MRI in AM
Neuro following
Seizure management as well
Prior cardiac history includes--HTN
No prior ECHO for review
Monitor on telemetry
No prior h/o lung disease, former smoker
Aspiration precautions
CXR reviewed wtih no acute process
NPO s/p DHT placement
TF diet per protocol
Speech eval
GI ppx --resume home PPI
Creat at baseline, follow UO
Void trials
I/Os
[place] if needed
No signs/symptoms suspicious for infectious etiology at this time.
Will observe off antibiotics for now.
DVT ppx held, SCDs
Prognosis overall appears poor, discussed with family at bedside
has decided on DNR--will change in record
If she should clinically deteriorate, they were ok with comfort measures
Diagnostic Data
Chest X-Ray:09/27/23- There is suboptimal inspiration with linear interstitial airspace disease at both lung bases most consistent with subsegmental atelectasis
CT Scan: CTA 09/27/23- 1). There is large volume partially calcific atherosclerotic plaque at the left carotid bifurcation associated with complete occlusion of the left internal carotid artery approximately 1.5 cm distal to its origin
No flow is demonstrated in the left internal carotid artery distal to this occlusion
There is cross filling of the left anterior cerebral artery and proximal M1 segment of the left middle cerebral artery via patent anterior communicating artery.
The distal M1 segment of the left middle cerebral artery is completely occluded.
2).There is large volume partially calcific atherosclerotic plaque at the right carotid bifurcation associated with approximately 70% stenosis of the right internal carotid artery at its origin .
HEAD- 1). There is thrombus in the M1 segment of the left middle cerebral artery with 14 cm subacute nonhemorrhagic left middle cerebral artery infarct as detailed above
2). There is old 3 cm infarct involving the right lentiform nucleus and external capsule
3). There is moderate diffuse cortical atrophy with moderate nonspecific white matter changes as described above.
Echo:
PFT's:
Reports and relevant images were personally reviewed.
-----
Critical Care time 32 mins -- The patient is admitted for acute critical illness for the treatment of vital organ failure and/or prevention of further life-threatening conditions. Total care includes time spent in review of history, physical exam,
medications, hemodynamic/ventilator parameters, laboratory data, imaging and discussion with house staff, pharmacy, respiratory therapy, immunochemist, and nursing.
Subjective Dataa
Subjective Data
Date of Service:
Date of Service: September 28, 2023
Chief Complaint: Diabetes Clinical Manager Follow Up
Subjective:
no acute events on
remains stable, on room air
remains largely unresponsive
dht in place
Objective Data
Data Reviewed
Vital Signs / I&O / Oxygen:
Vital Signs
Temp Pulse Resp BP Pulse Ox
99.5 F 91 26 146/71 97
09/28/23 03:38 09/28/23 06:00 09/28/23 06:00 09/28/23 06:00 09/28/23 06:00
Intake and Output
09/27/23 09/28/23 09/29/23
06:59 06:59 07:59
Intake Total 935 / 935
Output Total 950 / 950
Balance -15 / -15
SaO2 97
Physical Exam
General: Comfortable, Poor Appetite and Other (NAD)
HEENT: Normocephalic, Anicteric and Moist Mucous Membranes
Cardiovascular: S1-S2 and Regular Rhythm
Respiratory: Clear and Non-Labored Respirations
GI: Soft, Non Distended, Non Tender and NG Tube
Neurology: Unresponsive, Lethargic, Non Verbal and Other (opened eyes to some degree with verbal stim, quickly fell asleep, does not answer/can wiggle toes, no UE movements)
Skin: Warm and Dry
Labs/Micro/Reports
Lab Data
09/28/23 04:43
09/28/23 04:43
Laboratory Results
09/27/23
10:18
PT 14.1
INR 1.10
APTT 27.8
--- NOTE | 2023-09-28 07:27 | W.PN.HOSP.TC ---
Today's Communication/Plan
-
Continue Dobbhoff tube feeds
Replete potassium
Assessment / Plan
Assessment / Plan
Gen-awake, not alert, NAD, not following commands
HEENT-NC, AT, anicteric, clear oral mm
Neck-supple
CV-reg, no M, +S1/S2
Lungs-clear B/L
Abd-soft, NT, ND
Ext-no edema
Musculoskeletal-no cyanosis, clubbing
Skin-warm and dry
Large left middle cerebral artery subacute stroke -CT head confirms a thrombus in the M1 segment of the left middle cerebral artery with 14 cm subacute nonhemorrhagic infarct.� An old 3 cm infarct involving the right lentiform nucleus and external
capsule noted.� Moderate diffuse cortical atrophy with moderate nonspecific white matter changes.
CTA head and neck shows a large volume partially calcific atherosclerotic plaque at the left carotid bifurcation associated with complete occlusion of the left ICA approximately 1.5 cm distal to its origin.� No flow is demonstrated in the left ICA
distal to this occlusion.� Cross filling of the left anterior cerebral artery and proximal M1 segment of the left MCA via patent anterior communicating artery.� Distal M1 segment of the left middle cerebral artery is completely occluded.� 70%
stenosis of the right ICA at its origin noted.
Unfortunately patient is out of the window for thrombolysis or thrombectomy.� Discussed with Dr. Alva, neurology.
No meaningful improvement in mental status/neurologic status overnight. Overall prognosis appears to be poor unfortunately.
Awaiting neurosurgery input.
New onset seizure -most likely due to above stroke.� Continue IV Keppra per neurology.
Acute TME -due to large subacute stroke as above.� Continue tube feeds via DHT. NPO.
Hyponatremia -sodium 132.� Glucose 170.� Monitor closely.
Hypomagnesemia -improving.
Hyperphosphatemia - improving.
CAD/CABG -stable.
Essential hypertension- goal systolic blood pressure less than 180 per discussion with neurology.
DM2 with hyperglycemia -glucose 162 this morning.� At home she was on metformin 500 mg twice daily. Use low resistance sliding scale insulin. Hemoglobin A1c pending.
Chronic anemia -normocytic.� Hemoglobin improved.
History of GI bleed/peptic ulcer disease
Vitamin B12 deficiency
History of migraines
DNR per wishes
Anticipated Discharge: > 48 hours
Subjective/Interval History
-
Date of Service: September 28, 2023
Patient seen and examined. Looks comfortable. Nonverbal. Not interactive.
Objective Data
-
Labs:
Laboratory Results
09/28/23
04:43
WBC 14.5 H
Hgb 12.3
Hct 35.7 L
Plt Count 277
Sodium 132 L
Potassium 3.5
Chloride 97 L
Carbon Dioxide 29
BUN 10
Creatinine 0.5 L
Glucose 170 H
Calcium 9.2
Total Bilirubin 0.7
AST 29
ALT 13
Alkaline Phosphatase 81
Vital Signs:
Vital Signs
Temp Pulse Resp BP Pulse Ox
99.5 F 91 26 146/71 97
09/28/23 03:38 09/28/23 06:00 09/28/23 06:00 09/28/23 06:00 09/28/23 06:00
I&O
09/27/23 09/28/23 09/29/23
06:59 06:59 07:59
Intake Total 935 / 935
Output Total 950 / 950
Balance -15 / -15
Review of Systems
-
Unable to obtain full review of systems at this time due to: Acuity and Patient Non-verbal
[2023-09-28] MEDS: DESENEX/MITRAZOL/ZEASORB 1 APPLIC TOPICAL ×2 (07:55→21:21)
[2023-09-28] MEDS: PROTONIX IV 40 MG IV ×2 (07:55→21:20)
[2023-09-28] MEDS: ASPIRIN RECTAL (07:55)
[2023-09-28] MEDS: KEPPRA 500 MG IV ×2 (07:55→21:21)
[2023-09-28] MEDS: NSS (PRESERVATIVE FREE) 10 ML IV ×2 (07:55→21:20)
[2023-09-28] MEDS: ASPIRIN 300 MG RECTAL (08:00)
--- NOTE | 2023-09-28 08:20 | PTCARENOTE ---
Rec'd pt at 0700, hand off at bedside with nightshift RN. Pt nonverbal, does not follows commands. Opens eyes minimally to voice. Moves left side without difficulty, pulls at sheets and moves left leg around in bed. Right side flaccid, small reflex
to stimuli to right foot. See NIHSS documentation. Monitor SR. Lungs dim. +BS, abd soft/nt. DHT with tube feeds increased to goal. Purewick in place, pericare performed. Pt repositioned.
--- NOTE | 2023-09-28 08:57 | W.PN.NEURO.1 ---
Today's Communication / Plan
-
Continue to monitor for cerebral edema and further decline in function
Goal normal sodium and goal normoglycemia
Rectal aspirin 300 mg daily
Rehabilitation evaluations
Consideration for hospice
Levetiracetam 500 mg every 12 hours IV with consideration for discontinuance within the next several weeks
Consider repeating CT head 09/29/2023, earlier if there is neurologic worsening or signs of hemorrhagic conversion
Neuro Assessment/Plan
Assessment
Assessment: Malignant left MCA acute ischemic infarction
Etiology most likely atheroembolic with cardioembolic being less likely but still possible.
With clearly developed infarction of the entire left MCA territory patient was not a candidate for mechanical thrombectomy
Patient not a candidate for thrombolytics given far outside the time window.
New seizure due to the new ischemic stroke, not all patients who have early seizure due to an acute ischemic stroke need to be maintained on long-term antiseizure medications but for the time being would be best to have on antiseizure medication.
Plan
Recommendations
Continue to monitor for cerebral edema and further decline in function
Goal normal sodium and goal normoglycemia
Rectal aspirin 300 mg daily
Rehabilitation evaluations
Consideration for hospice
Levetiracetam 500 mg every 12 hours IV with consideration for discontinuance within the next several weeks
Consider repeating CT head 09/29/2023, earlier if there is neurologic worsening or signs of hemorrhagic conversion
Will follow
Subjective/Objective
Subjective Data
Date of Service: September 28, 2023
Patient unable to provide her own medical history
Objective Data
Vital Signs
Temp Pulse Resp BP Pulse Ox
37.7 C 81 17 149/77 96
09/28/23 07:52 09/28/23 08:30 09/28/23 08:30 09/28/23 08:00 09/28/23 08:30
Lab Results
09/28/23 04:43
09/28/23 04:43
PT 14.1 Sec (11.4-14.6) 09/27/23 10:18
INR 1.10 09/27/23 10:18
APTT 27.8 Sec (23.4-35.0) 09/27/23 10:18
Sodium 132 mmol/L (135-145) L 09/28/23 04:43
Potassium 3.5 mmol/L (3.5-5.1) 09/28/23 04:43
BUN 10 mg/dl (7-17) 09/28/23 04:43
Glucose 170 mg/dl (70-99) H 09/28/23 04:43
Calcium 9.2 mg/dl (8.4-10.2) 09/28/23 04:43
Phosphorus 3.4 mg/dl (2.5-4.5) 09/28/23 04:43
LDL Cholesterol, Calc 58 mg/dl 09/28/23 04:43
Patient Allergies
cephalexin [From Keflex] Allergy (Intermediate, Verified 09/27/23 10:27)
Rash
ibuprofen Allergy (Mild, Verified 09/27/23 10:27)
Hives
Penicillins Allergy (Mild, Verified 09/27/23 10:27)
Hives
iodine Allergy (Unknown, Verified 09/27/23 10:27)
Unknown
Review of Systems
-
Unable to obtain full review of systems at this time due to: Aphasia
History Source: Patient
All other systems: Reviewed and negative
Physical Exam
-
General: No Apparent Distress, Appears Stated Age and Other (NG tube in right nares)
Eyes: Round OU, [place] Conjunctivae and No Ptosis
HEENT: Anicteric and Moist Mucous Membranes
Neck: Full Range of Motion
Respiratory: No Dyspnea
Cardiac: No JVD
GI: Non-distended
Skin: Unremarkable
Extremities: No Clubbing, No Cyanosis and No Edema
Psych: Unable to Assess
Extended Neurological Exam
Mood & Affect: Unable to Assess
Attention Span & Concentration: Awake and Lethargic (Maintains eyes closed); Negative Interactive
Memory: Unable to Assess
Tremor: Hand Tremor Absent and Head Tremor Absent
Involuntary Movement: None
Speech: Mute
Cranial Nerve II: Left Eye: Unable to Assess Visual Castillo
Cranial Nerve II: Right Eye: Unable to Assess Visual Castillo
Cranial Nerve V: Facial Sensation: Unable to Assess
Cranial Nerve VIII: Hearing: Unable to Assess
Cranial Nerves IX, X: Palate Movement: Unable to Assess
Cranial Nerve XI: Shoulder Shrug: Unable to Assess
Cranial Nerve XII: Tongue Protusion: Unable to Assess
Muscle Strength, Overall: Spontaneously Moves (Left arm); Negative Other (No clear movement right arm or leg)
Pronator Drift: Unable to Assess
Cold Sensation: Unable to Assess
Vibration Sensation: Unable to Assess
Coordination: Unable to Assess
Gait & Station: Unable to Assess
Data Reviewed
-
CT Head: Report Reviewed and Image Reviewed
Labs: Report Reviewed
Reviewed with: Physician and Family
Old Records: Summarized
Past History
Past History
ED Past Medical History: CVA (Left MCA with left ICA and M1 occlusions, right ICA 70% stenosis September 2023), HTN, Hypercholesterolemia and NIDDM
ED Past Surgical History: Appendectomy, Cardiac (CABG, STent) and Cholecystectomy
Social History
Tobacco: Former smoker
Alcohol: Occasional
Personal:
Living: with family
Family History
Family History: Other (Reviewed and noncontributory)
Medications
-
Medications:
Generic Name Dose Route Start Last Admin
Trade Name Freq PRN Reason Stop Dose Admin
Aspirin 300 mg 09/28/23 08:00 09/28/23 08:00
Aspirin 300 Mg Rectal Suppository RECTAL 10/26/23 07:59 300 mg
DAILY MANUEL Administration
Dextrose 12.5 grams 09/27/23 11:55
Dextrose 50% (0.5 Grams/Ml) 50 Ml Syringe IV 10/25/23 11:54
[id number] PRN
hypoglycemia
Protocol
Enoxaparin Sodium 40 mg 09/27/23 18:00 09/27/23 16:29
Enoxaparin Sodium 40 Mg/0.4 Ml Syringe SC 10/25/23 17:59 40 mg
QPM MANUEL Administration
Glucagon 1 mg 09/27/23 11:55
Glucagon 1 Mg Vial IM 10/25/23 11:54
PRN PRN
hypoglycemia
Protocol
Insulin Aspart 0 units 09/27/23 18:00 09/28/23 06:08
Insulin Aspart Low Resistance 300 Units/3 Ml Pen.Injctr SC 10/25/23 17:59 1 units
Q6 MANUEL Administration
Protocol
Levetiracetam 500 mg 09/27/23 20:00 09/28/23 07:55
Levetiracetam (100 Mg/Ml) 500 Mg/5 Ml Vial IV 10/25/23 19:59 500 mg
Q12 MANUEL Administration
Miconazole Nitrate 0 applic 09/27/23 15:00 09/28/23 07:55
Miconazole Powder Bottle TOPICAL 10/25/23 14:59 1 applic
BID MANUEL Administration
Pantoprazole Sodium 40 mg 09/27/23 20:00 09/28/23 07:55
Pantoprazole Sodium 40 Mg/10 Ml Vial IV 10/25/23 19:59 40 mg
BID MANUEL Administration
Sodium Chloride 0 flush 09/27/23 12:00
Sodium Chloride 0.9% (Flush) Syringe IV 10/25/23 11:59
PER PROTOCOL MANUEL
Sodium Chloride 10 ml 09/27/23 20:00 09/28/23 07:55
Sodium Chloride 0.9% (Preservative Free) 10 Ml Vial IV 10/25/23 19:59 10 ml
BID MANUEL Administration
[2023-09-28 09:39] LABS: Glycohemoglobin (HgbA1c) 5.6 % (4.0-5.6)
--- NOTE | 2023-09-28 11:31 | PTCARENOTE ---
Family at bedside, updated. Discussed plan of care. expressed that he would like her to be comfortable and that home hospice might be an option if she doesn't improve. Emotional support given.
[2023-09-28 12:03] LABS: Glucose - Point of Care 165 mg/dl (70-99)
--- NOTE | 2023-09-28 13:46 | CHAP ---
Anita was sleeping peacefully. , Cesar, acknowledged how hard it is to see her like this, but also affirmed his trust in God, 'who always gets (him) through hard times.' We prayed together, and I assured him we are here for the whole
family.
--- NOTE | 2023-09-28 14:12 | CON.NS ---
Chief Complaint
-
stroke
History of Present Illness
This is a 77 yo female admitted yesterday for left sided ICA distribution stroke. Neurosurgery consulted for possible hemicraniectomy given malignant infarct.
Review of Systems
-
ROS not obtainable
Medication and Allergies
Home Medications
Home Medications
Medication Instructions Recorded
carvedilol 25 mg tablet (Coreg) 25 mg PO BID Heart 09/12/19
Disease/Condition
furosemide 20 mg tablet 20 mg PO DAILY Fluid 09/12/19
Retention/Swelling
metformin 500 mg tablet 500 mg PO BID@0800,1700 Diabetes 09/12/19
simvastatin 20 mg tablet 20 mg PO DAILY High Cholesterol 09/12/19
sumatriptan succinate 100 mg 100 mg PO DAILYPRN PRN mirgraines 09/12/19
tablet (Imitrex) ##0
aspirin 81 mg tablet,delayed 81 mg PO DAILY Blood Clot 09/13/19
release Prevention/Tx
acetaminophen 325 mg tablet 650 mg PO QIDPRN PRN mild pain 07/27/23
(Tylenol)
cyclobenzaprine 10 mg tablet 10 mg PO DAILYPRN PRN spasms 07/27/23
galcanezumab-gnlm 120 mg/mL 120 mg SC QMONTH migraine 07/27/23
subcutaneous pen injector
(Emgality Pen)
hydrocodone 5 mg-acetaminophen 325 1 tab PO Q6HPRN PRN PAIN 07/27/23
mg tablet
polyethylene glycol 3350 17 gram 17 grams PO DAILYPRN PRN 07/27/23
oral powder packet constipation
tramadol 50 mg tablet 50 mg PO BID PRN moderate pain 07/27/23
ferrous sulfate 325 mg (65 mg 325 mg PO DAILY Supplement #30 tabs 08/13/23
iron) tablet (FeroSul)
pantoprazole 40 mg tablet,delayed 40 mg PO BID Gastrointestinal 08/13/23
release issue #60 tabs
sucralfate 100 mg/mL oral 1 gm PO ACHS Gastrointestinal 08/13/23
suspension issue #45 mL
Allergies
Allergies
Allergy/AdvReac Type Severity Reaction Status Date / Time
cephalexin [From Keflex] Allergy Intermediate Rash Verified 09/27/23 10:27
ibuprofen Allergy Mild Hives Verified 09/27/23 10:27
Penicillins Allergy Mild Hives Verified 09/27/23 10:27
iodine Allergy Unknown Unknown Verified 09/27/23 10:27
Physical Exam
-
Exam:
moves left Ue and LE sponatenously
no speech
opens eyes spontaneously
CT head with large ICA stroke on the left
Problems
-
Problem Status Onset Code
Acute CVA (cerebrovascular accident) I63.9
Assessment / Plan
-
Stroke
-At this time there is no surgical needs
- I spoke with her fmaily at bedside and explained the role of surgery in a stroke of this kind
-They do not wish to have her undergo surgery if her swelling becomes an issue
-They do wish to have another CT tomorrow to aide in prognosis, i have ordered it
--- NOTE | 2023-09-28 16:10 | PTCARENOTE ---
Pt more awake this afternoon, restless at times. Does not follow commands, makes eye contact but is not always consistent. Pulling blankets off with left hand. Family remains at bedside.
[2023-09-28] MEDS: LOVENOX 40 MG SC (17:10)
[2023-09-28 18:05] LABS: Glucose - Point of Care 156 mg/dl (70-99)
--- NOTE | 2023-09-28 21:44 | PTCARENOTE ---
Assumed care of pt at 1900. Pt is drowsy but arouses with tactile or verbal stimuli, opens eyes spontaneously. Pt moves left side frequently, full ROM in LUE and LLE, however pt with right sided neglect and hemiparesis, will not acknowledge when
someone is on her right side but will look/track on the left side. See NIH stroke scale/neurological assessment flowsheet for full details. SR 80s with PACs on monitor, spot-checking SpO2, 95% on RA. Physical assessment completed, see nursing shift
assessment flowsheet for full details. Pt is currently telemetry level of care.
[2023-09-28 23:47] LABS: Glucose - Point of Care 157 mg/dl (70-99)
[2023-09-29] VITALS: BP 157/88
[2023-09-29 04:00] VITALS: BP 162/77
[2023-09-29] MEDS: NOVOLOG FLEXPEN-LOW RESISTANCE 1 UNITS SC (05:56)
[2023-09-29 06:00] VITALS: BMI 23.9
[2023-09-29 06:06] LABS: Glucose - Point of Care 173 mg/dl (70-99)
[2023-09-29 06:47] LABS: ALT (SGPT) 12 U/L (0-35); AST (SGOT) 25 U/L (14-36); Alkaline Phosphatase 84 U/L (38-126); Blood Urea Nitrogen 13 mg/dl (7-17); Calcium 9.3 mg/dl (8.4-10.2); Carbon Dioxide 26 mmol/L (22-30); Chloride 97 mmol/L (98-107); Estimated Creatinine Clearance 53 ml/min; Glucose 173 mg/dl (70-99); Magnesium 1.8 mg/dl (1.6-2.3); Phosphorus 3.4 mg/dl (2.5-4.5); Potassium 4.5 mmol/L (3.5-5.1); Sodium 130 mmol/L (135-145); Total Bilirubin 0.5 mg/dl (0.2-1.3); Total Protein 6.5 g/dl (6.3-8.2); eGFR > 60.00
--- NOTE | 2023-09-29 07:18 | W.PN.HOSP.TC ---
Addendum entered and electronically signed by Irja Farrell DO 09/29/23 11:31:
CT head done today unfortunately shows worsening cytotoxic edema, compression of the underlying left lateral ventricle, effacement of the overlying sulci hide approximately new 6 mm shift of midline structures to the right.
I spoke with and updated him regarding the CT findings. I also spoke with neurosurgery, neurology, intensive care medicine and all parties agree with recommendation for comfort measures.
also agrees with comfort measures.
Will try to minimize medications and utilize morphine and Ativan as needed comfort. Transfer out of ICU today. Monitor over 24 hours and decide on further care on Saturday.
Original Note:
Today's Communication/Plan
-
CT head
Assessment / Plan
Assessment / Plan
Gen-awake, not alert, NAD, not following commands
HEENT-NC, AT, anicteric, clear oral mm
Neck-supple
CV-reg, no M, +S1/S2
Lungs-clear B/L
Abd-soft, NT, ND
Ext-no edema
Musculoskeletal-no cyanosis, clubbing
Skin-warm and dry
Large left middle cerebral artery subacute stroke -CT head confirms a thrombus in the M1 segment of the left middle cerebral artery with 14 cm subacute nonhemorrhagic infarct.� An old 3 cm infarct involving the right lentiform nucleus and external
capsule noted.� Moderate diffuse cortical atrophy with moderate nonspecific white matter changes.
CTA head and neck shows a large volume partially calcific atherosclerotic plaque at the left carotid bifurcation associated with complete occlusion of the left ICA approximately 1.5 cm distal to its origin.� No flow is demonstrated in the left ICA
distal to this occlusion.� Cross filling of the left anterior cerebral artery and proximal M1 segment of the left MCA via patent anterior communicating artery.� Distal M1 segment of the left middle cerebral artery is completely occluded.� 70%
stenosis of the right ICA at its origin noted.
Unfortunately patient is out of the window for thrombolysis or thrombectomy.� Discussed with Dr. Alva, neurology.
No meaningful improvement in mental status/neurologic status overnight. Overall prognosis appears to be poor unfortunately.
Neurosurgery input noted. Check CT head today.
New onset seizure -most likely due to above stroke.� Continue IV Keppra per neurology.
Acute TME -due to large subacute stroke as above.� Continue tube feeds via DHT. NPO.
Hyponatremia -sodium 130.� Glucose 173.� Monitor closely.
Hypomagnesemia -improving.
Hyperphosphatemia - improving.
CAD/CABG -stable.
Essential hypertension- goal systolic blood pressure less than 180 per discussion with neurology.
DM2 with hyperglycemia -glucose 173 this morning.� At home she was on metformin 500 mg twice daily. Use low resistance sliding scale insulin. Hemoglobin A1c 5.6%.
Chronic anemia -normocytic.� Hemoglobin improved.
History of GI bleed/peptic ulcer disease
Vitamin B12 deficiency
History of migraines
DNR per wishes
Anticipated Discharge: 24 - 48 hours
Subjective/Interval History
-
Date of Service: September 29, 2023
Patient seen and examined. Remains comatose.
Objective Data
-
Labs:
Laboratory Results
09/29/23
05:53
Sodium 130 L
Potassium 4.5 D
Chloride 97 L
Carbon Dioxide 26
BUN 13
Creatinine 0.5 L
Glucose 173 H
Calcium 9.3
Total Bilirubin 0.5
AST 25
ALT 12
Alkaline Phosphatase 84
Vital Signs:
Vital Signs
Temp Pulse Resp BP Pulse Ox
98.9 F 83 27 162/77 98
09/29/23 03:25 09/29/23 06:00 09/29/23 06:00 09/29/23 04:00 09/29/23 05:00
I&O
09/28/23 09/29/23 09/30/23
05:59 06:59 06:59
Intake Total
Output Total
Balance
Review of Systems
-
Unable to obtain full review of systems at this time due to: Acuity and Patient Non-verbal
[2023-09-29 08:00] VITALS: BP 157/78
[2023-09-29] MEDS: ASPIRIN 300 MG RECTAL (08:02)
[2023-09-29] MEDS: PROTONIX IV 40 MG IV (08:02)
[2023-09-29] MEDS: DESENEX/MITRAZOL/ZEASORB 1 APPLIC TOPICAL (08:02)
[2023-09-29] MEDS: NSS (PRESERVATIVE FREE) 10 ML IV (08:02)
[2023-09-29] MEDS: KEPPRA 500 MG IV (08:02)
--- NOTE | 2023-09-29 11:03 | W.PN.NEURO.1 ---
Today's Communication / Plan
-
Consideration for hospice
Levetiracetam 500 mg every 12 hours IV with consideration for discontinuance within the next several weeks
Neuro Assessment/Plan
Assessment
Assessment: Malignant left MCA acute ischemic infarction
Etiology most likely atheroembolic with cardioembolic being less likely but still possible.
With clearly developed infarction of the entire left MCA territory patient was not a candidate for mechanical thrombectomy
Patient not a candidate for thrombolytics given far outside the time window.
New seizure due to the new ischemic stroke, not all patients who have early seizure due to an acute ischemic stroke need to be maintained on long-term antiseizure medications but for the time being would be best to have on antiseizure medication.
Plan
Recommendations
Continue to monitor for cerebral edema and further decline in function
Goal normal sodium and goal normoglycemia
Rectal aspirin 300 mg daily
Rehabilitation evaluations
Consideration for hospice
Levetiracetam 500 mg every 12 hours IV with consideration for discontinuance within the next several weeks
Will follow
Subjective/Objective
Subjective Data
Date of Service: September 29, 2023
Patient unable provide her own medical history
Objective Data
Vital Signs
Temp Pulse Resp BP Pulse Ox
37.4 C 84 27 157/78 98
09/29/23 07:40 09/29/23 09:00 09/29/23 08:00 09/29/23 08:00 09/29/23 05:00
Lab Results
09/28/23 04:43
09/29/23 05:53
PT 14.1 Sec (11.4-14.6) 09/27/23 10:18
INR 1.10 09/27/23 10:18
APTT 27.8 Sec (23.4-35.0) 09/27/23 10:18
Sodium 130 mmol/L (135-145) L 09/29/23 05:53
Potassium 4.5 mmol/L (3.5-5.1) D 09/29/23 05:53
BUN 13 mg/dl (7-17) 09/29/23 05:53
Glucose 173 mg/dl (70-99) H 09/29/23 05:53
Calcium 9.3 mg/dl (8.4-10.2) 09/29/23 05:53
Phosphorus 3.4 mg/dl (2.5-4.5) 09/29/23 05:53
LDL Cholesterol, Calc 58 mg/dl 09/28/23 04:43
Patient Allergies
cephalexin [From Keflex] Allergy (Intermediate, Verified 09/27/23 10:27)
Rash
ibuprofen Allergy (Mild, Verified 09/27/23 10:27)
Hives
Penicillins Allergy (Mild, Verified 09/27/23 10:27)
Hives
iodine Allergy (Unknown, Verified 09/27/23 10:27)
Unknown
Review of Systems
-
Unable to obtain full review of systems at this time due to: Lethargy and Aphasia
History Source: Patient
All other systems: Reviewed and negative
Physical Exam
-
General: No Apparent Distress, Appears Stated Age and Other (NG tube in right nares)
Eyes: Round OU, [place] Conjunctivae and No Ptosis
HEENT: Anicteric and Moist Mucous Membranes
Neck: Full Range of Motion
Respiratory: No Dyspnea
Cardiac: No JVD
GI: Non-distended
Skin: Unremarkable
Extremities: No Clubbing, No Cyanosis and No Edema
Psych: Unable to Assess
Extended Neurological Exam
Mood & Affect: Unable to Assess
Attention Span & Concentration: Awake and Lethargic (Maintains eyes closed); Negative Interactive
Memory: Unable to Assess
Tremor: Hand Tremor Absent and Head Tremor Absent
Involuntary Movement: None
Speech: Mute
Cranial Nerve II: Left Eye: Unable to Assess Visual Castillo
Cranial Nerve II: Right Eye: Unable to Assess Visual Castillo
Cranial Nerve V: Facial Sensation: Unable to Assess
Cranial Nerve VIII: Hearing: Unable to Assess
Cranial Nerves IX, X: Palate Movement: Unable to Assess
Cranial Nerve XI: Shoulder Shrug: Unable to Assess
Cranial Nerve XII: Tongue Protusion: Unable to Assess
Muscle Strength, Overall: Spontaneously Moves (Left arm); Negative Other (No clear movement right arm or leg or left leg)
Pronator Drift: Unable to Assess
Cold Sensation: Unable to Assess
Vibration Sensation: Unable to Assess
Coordination: Unable to Assess
Gait & Station: Unable to Assess
Data Reviewed
-
CT Head: Report Reviewed
Labs: Report Reviewed
Reviewed with: Physician, Patient and Family
Past History
Past History
ED Past Medical History: CVA (Left MCA with left ICA and M1 occlusions, right ICA 70% stenosis September 2023), HTN, Hypercholesterolemia and NIDDM
ED Past Surgical History: Appendectomy, Cardiac (CABG, STent) and Cholecystectomy
Social History
Tobacco: Former smoker
Alcohol: Occasional
Personal:
Living: with family
Family History
Family History: Other (Reviewed and noncontributory)
Medications
-
Medications:
Generic Name Dose Route Start Last Admin
Trade Name Freq PRN Reason Stop Dose Admin
Aspirin 300 mg 09/28/23 08:00 09/29/23 08:02
Aspirin 300 Mg Rectal Suppository RECTAL 10/26/23 07:59 300 mg
DAILY MANUEL Administration
Dextrose 12.5 grams 09/27/23 11:55
Dextrose 50% (0.5 Grams/Ml) 50 Ml Syringe IV 10/25/23 11:54
[id number] PRN
hypoglycemia
Protocol
Enoxaparin Sodium 40 mg 09/27/23 18:00 09/28/23 17:10
Enoxaparin Sodium 40 Mg/0.4 Ml Syringe SC 10/25/23 17:59 40 mg
QPM MANUEL Administration
Glucagon 1 mg 09/27/23 11:55
Glucagon 1 Mg Vial IM 10/25/23 11:54
PRN PRN
hypoglycemia
Protocol
Insulin Aspart 0 units 09/27/23 18:00 09/29/23 05:56
Insulin Aspart Low Resistance 300 Units/3 Ml Pen.Injctr SC 10/25/23 17:59 1 units
Q6 MANUEL Administration
Protocol
Levetiracetam 500 mg 09/27/23 20:00 09/29/23 08:02
Levetiracetam (100 Mg/Ml) 500 Mg/5 Ml Vial IV 10/25/23 19:59 500 mg
Q12 MANUEL Administration
Miconazole Nitrate 0 applic 09/27/23 15:00 09/29/23 08:02
Miconazole Powder Bottle TOPICAL 10/25/23 14:59 1 applic
BID MANUEL Administration
Pantoprazole Sodium 40 mg 09/27/23 20:00 09/29/23 08:02
Pantoprazole Sodium 40 Mg/10 Ml Vial IV 10/25/23 19:59 40 mg
BID MANUEL Administration
Sodium Chloride 0 flush 09/27/23 12:00
Sodium Chloride 0.9% (Flush) Syringe IV 10/25/23 11:59
PER PROTOCOL MANUEL
Sodium Chloride 10 ml 09/27/23 20:00 09/29/23 08:02
Sodium Chloride 0.9% (Preservative Free) 10 Ml Vial IV 10/25/23 19:59 10 ml
BID MANUEL Administration
[2023-09-29 11:47] LABS: Glucose - Point of Care 199 mg/dl (70-99)
[2023-09-29 12:00] VITALS: BP 146/69
--- NOTE | 2023-09-29 12:05 | PTCARENOTE ---
Family updated at bedside by Neuro about CT scan results from this am. 1130-pt made comfort care/medsurg status.
[2023-09-29 16:37] VITALS: BP 176/84
[2023-09-29] MEDS: MORPHINE SULFATE 2 MG IV ×3 (18:31→21:17)
[2023-09-29] MEDS: ROBINUL 0.200000000000000011 MG IV (20:15)
--- NOTE | 2023-09-29 20:32 | PTCARENOTE ---
Assumed care of pt at 1900. Pt is now on comfort measures. At start of shift several family members in room/at bedside. Pt with labored and irregular breathing at times, and a moist sounding cough. Medicated with PRN morphine and glycopyralate, see
EMAR. Pt is minimally responsive. Tube feeds turned off. Family has now left for the night, wants to be called if there are any changes.
[2023-09-29] MEDS: DESENEX/MITRAZOL/ZEASORB TOPICAL (21:01)
[2023-09-29 22:39] VITALS: BP 150/67
[2023-09-30] MEDS: MORPHINE SULFATE 2 MG IV ×8 (02:28→15:32)
[2023-09-30] MEDS: ROBINUL 0.200000000000000011 MG IV ×2 (02:36→14:58)
[2023-09-30] MEDS: ATIVAN 1 MG IV (02:37)
--- NOTE | 2023-09-30 05:32 | PTCARENOTE ---
Pt has been Fritz-Oliver breathing throughout the night, more recently has been having increased dyspnea and making moaning sounds. Morphine and Ativan have been administered PRN. Pt has had x3 doses of Morphine in less than 4 hours, per protocol
can be started on Morphine drip. Call placed to pharmacy to request drip. Miya care done and purewick/brief/drawsheet and pad changed.
[2023-09-30] MEDS: MORPHINE 100 IV (05:44)
--- NOTE | 2023-09-30 07:00 | PTCARENOTE ---
received patient at change of shift. Pt appears comfortable in bed. morphine gtt infusing per protocol. pt arouses minimally to stimulus, moans with repositioning.
[2023-09-30] MEDS: DESENEX/MITRAZOL/ZEASORB 1 APPLIC TOPICAL ×2 (08:17→20:11)
[2023-09-30 08:29] VITALS: BP 118/72
--- NOTE | 2023-09-30 09:22 | W.PN.HOSP.TC ---
Today's Communication/Plan
-
Hospice
Assessment / Plan
Assessment / Plan
Patient not awake alert
Moaning in pain
Cardiovascular system S1-S2 appreciated
Right hemiplegia
Assessment
#Large left middle cerebral artery subacute stroke -CT head confirms a thrombus in the M1 segment of the left middle cerebral artery with 14 cm subacute nonhemorrhagic infarct.� An old 3 cm infarct involving the right lentiform nucleus and external
capsule noted.� Moderate diffuse cortical atrophy with moderate nonspecific white matter changes.
CTA head and neck shows a large volume partially calcific atherosclerotic plaque at the left carotid bifurcation associated with complete occlusion of the left ICA approximately 1.5 cm distal to its origin.� No flow is demonstrated in the left ICA
distal to this occlusion.� Cross filling of the left anterior cerebral artery and proximal M1 segment of the left MCA via patent anterior communicating artery.� Distal M1 segment of the left middle cerebral artery is completely occluded.� 70%
stenosis of the right ICA at its origin noted.
Unfortunately patient was out of the window for thrombolysis or thrombectomy.�
No meaningful improvement in mental status/neurologic status . Overall prognosis appears to be poor unfortunately.
Neurosurgery input noted.
Repeat CT head with cytotoxic edema and compression of the left lateral ventricle with 6 mm midline shift
#New onset seizure -most likely due to above stroke.�
#Acute TME -due to large subacute stroke as above.�
#Hyponatremia
#Hypomagnesemia
#Hyperphosphatemia
#CAD/CABG =
#Essential hypertension
#DM2 with hyperglycemia Hemoglobin A1c 5.6%.
#Chronic anemia -normocytic.�
#History of GI bleed/peptic ulcer disease
#Vitamin B12 deficiency
#History of migraines
#DNR
Plan
Patient was started on a morphine drip last night.
Spoke to this morning-regarding hospice he wants to proceed with hospice
Discussed with case management and nursing
Hospice consult placed
Patient is off of all the medicines except for medicines for comfort at this point.
Anticipated Discharge: 24 - 48 hours
Subjective/Interval History
-
Date of Service: September 30, 2023
Objective Data
-
Labs:
Laboratory Results
09/30/23
06:00
WBC Cancelled
Hgb Cancelled
Hct Cancelled
Plt Count Cancelled
Sodium Cancelled
Potassium Cancelled
Chloride Cancelled
Carbon Dioxide Cancelled
BUN Cancelled
Creatinine Cancelled
Glucose Cancelled
Calcium Cancelled
Total Bilirubin Cancelled
AST Cancelled
ALT Cancelled
Alkaline Phosphatase Cancelled
Vital Signs:
Vital Signs
Temp Pulse Resp BP Pulse Ox
98.6 F 101 21 118/72 95
09/30/23 07:30 09/30/23 08:30 09/30/23 08:30 09/30/23 08:29 09/29/23 21:04
I&O
09/29/23 09/30/23 10/01/23
06:59 06:59 06:59
Intake Total 880 / 880
Output Total 600 / 600
Balance 280 / 280
--- NOTE | 2023-09-30 10:39 | CM ---
CM met with pt, spouse and family bedside
Pt currently in ICU on comfort measures
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
Was noted to be completely independent
CM consult for hospice
Spouse in agreement
Discussion with nursing, pt on morphine drip
Pt referred to Hospice for GIP
Discharge Disposition- awaiting outcome of GIP assessment
--- NOTE | 2023-09-30 12:03 | HOSPNOTE ---
Met with family and the patient appears actively dying, emotional support was provided. Will continue to follow patient and support family. Patient will remain on comfort measures.
--- NOTE | 2023-09-30 13:37 | PTCARENOTE ---
pt appears comfortable after prn morphine for dyspnea. family at bedside, provided with bereavement tray.
[2023-09-30] MEDS: MORPHINE SULFATE 4 MG IV ×4 (16:04→20:16)
--- NOTE | 2023-09-30 20:00 | PTCARENOTE ---
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 RA IC x 2 patent, Morphine gtt infusing per work list. purewick in place, minimal output. repositioned, mouth care.
[2023-09-30 20:27] VITALS: BP 63/47
[2023-10-01] VITALS: BP 71/49
[2023-10-01] MEDS: MORPHINE SULFATE 4 MG IV ×6 (00:17→14:25)
[2023-10-01] MEDS: MORPHINE 100 IV (06:11)
--- NOTE | 2023-10-01 08:31 | W.PN.HOSP.TC ---
Addendum entered and electronically signed by Corie Jones MD 10/01/23 16:59:
Dictation- [id number]
Original Note:
Today's Communication/Plan
-
Comfort care
Assessment / Plan
Assessment / Plan
Patient not awake alert
looks comfortable
Assessment
#Large left middle cerebral artery subacute stroke -CT head confirms a thrombus in the M1 segment of the left middle cerebral artery with 14 cm subacute nonhemorrhagic infarct.� An old 3 cm infarct involving the right lentiform nucleus and external
capsule noted.� Moderate diffuse cortical atrophy with moderate nonspecific white matter changes.
CTA head and neck shows a large volume partially calcific atherosclerotic plaque at the left carotid bifurcation associated with complete occlusion of the left ICA approximately 1.5 cm distal to its origin.� No flow is demonstrated in the left ICA
distal to this occlusion.� Cross filling of the left anterior cerebral artery and proximal M1 segment of the left MCA via patent anterior communicating artery.� Distal M1 segment of the left middle cerebral artery is completely occluded.� 70%
stenosis of the right ICA at its origin noted.
Unfortunately patient was out of the window for thrombolysis or thrombectomy.�
No meaningful improvement in mental status/neurologic status . Overall prognosis appears to be poor unfortunately.
Neurosurgery input noted.
Repeat CT head with cytotoxic edema and compression of the left lateral ventricle with 6 mm midline shift
#New onset seizure -most likely due to above stroke.�
#Acute TME -due to large subacute stroke as above.�
#Hyponatremia
#Hypomagnesemia
#Hyperphosphatemia
#CAD/CABG
#Essential hypertension
#DM2
#Chronic anemia
#History of GI bleed/peptic ulcer disease
#Vitamin B12 deficiency
#History of migraines
#DNR
Plan
Continue morphine gtt for comfort.
Appears comfortable now.
Anticipated Discharge: 24 - 48 hours
Subjective/Interval History
-
Date of Service: October 01, 2023
Objective Data
-
Vital Signs:
Vital Signs
Temp Pulse Resp BP Pulse Ox
98.6 F 87 24 71/49 94
09/30/23 07:30 10/01/23 06:00 10/01/23 06:00 10/01/23 00:00 09/30/23 20:15
I&O
09/30/23 10/01/23 10/02/23
06:59 06:59 06:59
Intake Total 880 / 880
Output Total 600 / 600 75 / 75
Balance 280 / 280 -75 / -75
[2023-10-01 08:35] VITALS: BP 83/48
[2023-10-01] MEDS: DESENEX/MITRAZOL/ZEASORB 1 APPLIC TOPICAL (08:39)
--- NOTE | 2023-10-01 08:51 | PTCARENOTE ---
report received, assessments per work list. patient without verbal or non verbal pain cues, CPOT,RDOS per assessments. morphine @4mg. care provided, repositioned
[2023-10-01 14:19] VITALS: BP 57/38
[2023-10-01] MEDS: ROBINUL 0.200000000000000011 MG IV (14:19)
--- NOTE | 2023-10-01 14:31 | PTCARENOTE ---
Addendum entered by Brisa Masterson RN 10/01/23 16:32:
emotional support to family. post mortum care provided, dentures in patient mouth per request
Addendum entered by Brisa Masterson RN 10/01/23 14:42:
patient . tiger text to hospitalist to inform
Original Note:
patient with increased signs respiratory distress, grunting gurgling respirations. see MAR. morphine gtt to step 4 per orders. family at bedside. reviewed signs imminent . support given
--- NOTE | 2023-10-01 16:28 | W.PN.DEATH ---
Pronouncement of
-
Called to see patient to pronounce.
No spontaneous heart tones or respirations noted.
Patient not responsive to verbal stimuli.
Patient is pronounced .
Time of : 14:45
Date of : 10/01/23
Cause of : Stroke
== END 2023-10-01 14:34 | disposition expired | DRG 64 ==
LOC: ICU 11:01
PROVIDERS: Nurse Practitioner Family; ADMITTING PHYSICIAN Hospitalist; ATTENDING PHYSICIAN Hospitalist; CONSULT PHYSICIAN Student in an Organized Health Care Education/Training Program; EMERGENCY PHYSICIAN Emergency Medicine; FAMILY PHYSICIAN Family Medicine; OTHER PHYSICIAN Internal Medicine; OTHER PHYSICIAN Internal Medicine Cardiovascular Disease
DX: I63.89 Other cerebral infarction (principal); G92.8 Other toxic encephalopathy; G93.6 Cerebral edema; G81.91 Hemiplegia, unspecified affecting right dominant side; E87.1 Hypo-osmolality and hyponatremia; R47.01 Aphasia; R29.725 NIHSS score 25; R56.9 Unspecified convulsions; I25.10 Atherosclerotic heart disease of native coronary artery without angina pectoris; E11.65 Type 2 diabetes mellitus with hyperglycemia; E53.8 Deficiency of other specified B group vitamins; Z66 Do not resuscitate; Z95.1 Presence of aortocoronary bypass graft; Z79.84 Long term (current) use of oral hypoglycemic drugs
CPT/HCPCS: 70450; 70496; 70498; 71045; 74018; 80053; 80061; 82962; 83036; 83735; 84100; 85025; 85027; 85610; 85730; 93005; 93306; 96365; 96375; 99291; Q9967